=== PATIENT | female | born 1945 | race Caucasian/White ===

== ENCOUNTER → 2017-04-18 | Day surgery (SDC) | payer MEDICARE, OTHER ==
[~2017-04-18] MED LIST: ASPIRIN81 M2 PO; ATENOLOL; BENADRYL; BENADRYL PO; CALAN PO; CALAN SR120 MG PO; CRESTOR10 MG PO; FUROSEMIDE40 MG PO; GLUCOTROL; GLYBURIDE-METFO1 TA4 PO; HCTZ; INDOCIN SR75 MG; LIPITOR; MEDROL PO; METFORMIN PO; METOPROLOL TAR100 MG PO; METRONIDAZOLE PO; NORVASC; PANTOPRAZOLE SO40 MG PO; PAXIL; TENORETIC 50 TA1 TAB PO; VITAMIN D250000 UNIT PO; ZETIA PO; ZOLOFT PO; ZYLOPRIM
--- NOTE | ~2017-04-18 | OR ---
Unit #: [id number] #: [id number] Patient: RADU [place] [id number] [address] [address] [id number] O MR#: [id number] NAME: [facility] [place] ROOM: Date of Procedure: 04/18/2017 Admission Date: 04/18/2017 Surgeon: Justin Ortega M.D. : 1945 Attending Physician: Justin Ortega M.D. Primary Care Physician: Yaritza Cevallos M.D. OPERATIVE REPORT PROCEDURE PERFORMED Colonoscopy to cecum. INDICATIONS FOR PROCEDURE A 71-year-old female with history of polyps, undergoing colonoscopy. MEDICATIONS Monitored anesthesia. POSTOPERATIVE FINDINGS 1. Good prep. 2. Diverticulosis. 3. No polyps, masses, or colitis. PLAN Repeat colonoscopy in 5 years. DESCRIPTION OF PROCEDURE The patient was explained of the procedure risk and benefits along with risk and benefits of anesthesia. She was brought to the endoscopy room. Propofol anesthesia was given. Rectal exam was done, which was normal. Colonoscope was lubricated, passed up the rectum, advanced under direct vision all the way to the cecum. Cecum was identified by ileocecal valve and appendiceal orifice. No polyps, masses, or colitis was seen. Sigmoid colon was difficult to negotiate because of severe acute angulation. Diverticulosis noted also. Gently, I pulled the scope out. She tolerated it well. No major complications were seen. Dictated by... Pat Nava/muna TD: 04/18/2017 18:52 JOB #: [id number] CC: Yaritza Cevallos M.D. Unit #: [id number] #: [id number] Patient: RADU [place] OPERATIVE REPORT Page 1 of 1 X Justin Ortega MD X PROCEDURE OPERATIVE NOTE
== END | disposition home or self-care (01) ==
LOC: COPS 07:25
DX: Z12.11 Encounter for screening for malignant neoplasm of colon (principal); K57.30 Diverticulosis of large intestine without perforation or abscess without bleeding; E11.9 Type 2 diabetes mellitus without complications; I10 Essential (primary) hypertension; K21.9 Gastro-esophageal reflux disease without esophagitis; E78.5 Hyperlipidemia, unspecified; Z83.71 Family history of colonic polyps; Z88.5 Allergy status to narcotic agent; Z88.8 Allergy status to other drugs, medicaments and biological substances; Z79.82 Long term (current) use of aspirin; Z79.84 Long term (current) use of oral hypoglycemic drugs; Z79.899 Other long term (current) drug therapy; Z90.710 Acquired absence of both cervix and uterus
CPT/HCPCS: 82947